=== PATIENT | female | born 1945 | race American Indian/Alaskan Native ===

== ENCOUNTER 2017-05-23 06:01 | Inpatient (IN) | payer MEDICARE ==
--- NOTE | 2017-05-22 11:15 | Anesthesia Consultation ---
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
[2017-05-22 12:16] LABS: Anion Gap 17 mmol/L; BUN/Creatinine Ratio 23; Blood Urea Nitrogen 14 mg/dL (7-17); Calcium 9.5 mg/dL (8.4-10.2); Carbon Dioxide 25 mmol/L (22-30); Chloride 100.3 mmol/L (98-107); Glucose 93 mg/dL (65-100); Potassium 3.7 mmol/L (3.6-5.0); Sodium 139 mmol/L (137-145)
[2017-05-22 12:19] LABS: Basophils % (Auto) 0.6 % (0.0-1.8); Hematocrit 40.8 % (30.3-42.9); Hemoglobin 12.7 gm/dl (10.1-14.3); Mean Corpuscular HGB Conc 31 % (30-34); Mean Corpuscular Volume 72 fl (79-97); Platelet Count 224 K/mm3 (140-440); Red Blood Count 5.64 M/mm3 (3.65-5.03); Red Cell Distribution Width 15.5 % (13.2-15.2); White Blood Count 4.6 K/mm3 (4.5-11.0)
[2017-05-22 12:23] LABS: Mean Corpuscular Hemoglobin 23 pg (28-32)
[~2017-05-23 06:01] MED LIST: ANCEF/STERILE WATER 2 GM/20 ML 2 GM/20 ML SYRINGE IV NR; NACL 0.9% 1000 ML 1,000 ML IV SCH; PEPCID PO NR; VERSED IV NR
[2017-05-23] MEDS ORDERED: NACL BACTERIOSTATIC INFILTRATI ONE (06:28)
[2017-05-23] MEDS ORDERED: XYLOCAINE MPF 2% ONE (07:16)
[2017-05-23] MEDS ORDERED: DECADRON ONE (07:16)
[2017-05-23] MEDS ORDERED: ZEMURON IV ONE (07:16)
[2017-05-23] MEDS ORDERED: ZOFRAN ONE (07:16)
[2017-05-23] MEDS ORDERED: ROBINUL ONE ×2 (07:16)
[2017-05-23] MEDS ORDERED: SUBLIMAZE ONE (07:16)
[2017-05-23] MEDS ORDERED: NEOSTIGMINE ONE (07:16)
--- NOTE | 2017-05-23 07:32 | Anesthesia Day of Surgery ---
Anesthesia Day of Surgery - Day of Surgery Patient Examined: Yes Patient H&P Reviewed: Yes Patient is NPO: Yes
[2017-05-23] MEDS ORDERED: PERCOCET 5/325 PO PRN (07:33)
[2017-05-23] MEDS ORDERED: ZOFRAN IV PRN ×2 (07:33→08:23)
[2017-05-23] MEDS ORDERED: DIPRIVAN 10 MG/ML IV ONE (07:34)
[2017-05-23] MEDS ORDERED: PROTAMINE SULFATE ONE (07:47)
[2017-05-23] MEDS ORDERED: HEPARIN 10,000 UNITS/10 ML ONE (07:48)
[2017-05-23] MEDS ORDERED: THROMBIN (BOVINE) TP ONE (07:48)
[2017-05-23] MEDS ORDERED: NACL 0.9% 500 ML 500 ML ONE (07:48)
[2017-05-23] MEDS ORDERED: NACL 0.9% 0 ML ONE (07:48)
[2017-05-23] MEDS ORDERED: GELFOAM TP ONE (07:48)
[2017-05-23] MEDS ORDERED: MARCAINE 0.5% 30 ML INFILTRATI ONE (07:48)
[2017-05-23] MEDS ORDERED: DILAUDID IV PRN (08:00)
[2017-05-23] MEDS ORDERED: TYLENOL PO PRN (08:23)
[2017-05-23] MEDS ORDERED: MILK OF MAGNESIA PO PRN (08:23)
[2017-05-23] MEDS ORDERED: ARTIFICIAL TEARS OPHTH OINT ONE (08:43)
[2017-05-23] MEDS ORDERED: HEPARIN 10,000 UNITS/10 ML 2,000 UNIT in NACL 0.9% 500 ML 500 ML IR ONE (09:04)
[2017-05-23] MEDS ORDERED: DILAUDID ONE (09:11)
[2017-05-23] MEDS ORDERED: NACL 0.9% IR ONE (09:15)
[2017-05-23] MEDS ORDERED: ePHEDrine SULFATE ONE (09:41)
[2017-05-23] MEDS ORDERED: DULCOLAX PR PRN (10:00)
[2017-05-23] MEDS ORDERED: NACL 0.9% 1000 ML 1,000 ML ONE (10:03)
[2017-05-23] MEDS ORDERED: MARCAINE 0.5% INFILTRATI ONE (10:50)
[2017-05-23] MEDS ORDERED: ATIVAN PO PRN (11:30)
[2017-05-23] MEDS ORDERED: NARCAN 0.4 MG/1 ML IV PRN (11:31)
[2017-05-23] MEDS ORDERED: MORPHINE IV PRN ×2 (11:31)
--- NOTE | 2017-05-23 11:37 | Post Operative Note ---
Pre-op diagnosis: Left popliteal venous aneurysm Post-op diagnosis: same Findings: 3 cm popliteal venous aneurysm with neural compression successfully resected and repaired using a lateral venorrhaphy technique Procedure: Resection and repair of left popliteal artery aneurysm using aneurysmectomy and lateral venorrhaphy Anesthesia: LING Surgeon: MARGIE MEJIA Medical Dosimetrist: BERNARDO HAWLEY Estimated blood loss: 50-100ml Pathology: list (venous aneurysm wall) Specimen disposition: to lab Condition: stable Disposition: PACU
[2017-05-23] MEDS ORDERED: NACL 0.9% 1000 ML 1,000 ML IV SCH (11:45)
--- NOTE | 2017-05-23 11:57 | Operative Report ---
Operative Report Operative Report: Date of procedure: 05/23/2017 Pre-operative diagnosis: Left popliteal venous aneurysm with neural compression Post-operative diagnosis: Same Procedure name(s): Section and repair of left popliteal venous aneurysm using aneurysmectomy and lateral venorraphy technique Surgeon: Joshua Nelson MD Harvest Worker Field Crop: Saman Dale PA-C Anesthesia: Normal endotracheal anesthesia prone positioning EBL: 75 mL Specimen(s): Venous aneurysm wall Findings: 3 cm venous aneurysms successfully resected venous continuity preserved. Short saphenous-popliteal junction preserved Procedure: Patient in the supine position after adequate levels of general endotracheal anesthesia was obtained the patient was then transferred from the bed to the operating room table in the prone position and after appropriate positioning and safety protocols were followed the left leg was then prepped and draped in standard sterile technique exposing the posterior popliteal fossa. A vertical S type incision for a standard posterior approach was then made in the posterior popliteal fossa and carried down sharply through the subcutaneous tissue. Soft tissue was preserving all neural structures. The posterior fascia was then divided vertically and the short saphenous vein tibial nerve were identified and preserved. Inferior portion of the dissection was the popliteus muscle the superior portion of the dissection was the space between the head of the gastrocnemius muscles. The posterior wall of the venous aneurysm was easily observable through the subcutaneous tissue and a careful meticulous dissection was made delineating the normal popliteal vein above and below the aneurysmal expansion. All neurovascular structures were preserved and swept either medially or laterally as indicated by the attending location to the aneurysm. Short saphenous vein and the saphenous popliteal junction was preserved. I then completely mobilized the vessel from underneath side branches. The patient was then heparinized and after an appropriate delay inflow and outflow vessels were occluded. A longitudinal venotomy was then made in the posterior wall of the aneurysm incision was extended proximally until normal vein was encountered. I then resected the redundant vein wall leaving enough to do a primary closure without significant venous narrowing. The anterior wall of the aneurysm was exceedingly thin and I did not feel it was structurally sound therefore I imbricated the thicker portions of the vein excluding the patient portion. 6-0 Prolene suture was used. As a large popliteal valve which was preserved. I then closed the venotomy and running 6-0 Prolene suture 4 needle technique. Inflow and outflow vessels were flushed. Suture line was then completed and air was evacuated followed by sequential release of the blood vessels. I assumed a normal caliber and was to be flowing normally. Hemostasis was obtained using quick clot. Then placed a field block of Marcaine in the fascia subcutaneous tissue and subdermal levels and then closed the fascia using a running 3-0 Vicryl suture. Subcutaneous tissue was then closed using 3-0 Vicryl and the skin was closed using 4-0 Monocryl subcuticular. The skin was sealed with Dermabond. The patient was then returned to the supine position extubated and returned to the recovery room in stable condition having tolerated the procedure well. Sponge and needle counts were correct.
[2017-05-23] MEDS ORDERED: ANCEF/NS 1 GM/50 ML 1 GM/50 ML BAG IV SCH (12:00)
[2017-05-23] MEDS: ceFAZolin 1 GM in NACL 0.9% 20 ML IV SCH ×2 (15:44→22:20)
[2017-05-23] MEDS: NORCO 5/325 PO PRN ×2 (16:04→22:00)
[2017-05-23] MEDS: ELIQUIS PO SCH (22:01)
[2017-05-24] MEDS: NORCO 5/325 PO PRN ×2 (04:22→14:29)
[2017-05-24 05:56] LABS: Hematocrit 33.2 % (30.3-42.9); Hemoglobin 10.7 gm/dl (10.1-14.3)
[2017-05-24 06:13] LABS: Anion Gap 16 mmol/L; BUN/Creatinine Ratio 15; Blood Urea Nitrogen 9 mg/dL (7-17); Calcium 7.9 mg/dL (8.4-10.2); Carbon Dioxide 25 mmol/L (22-30); Chloride 106.7 mmol/L (98-107); Glucose 95 mg/dL (65-100); Potassium 3.6 mmol/L (3.6-5.0); Sodium 144 mmol/L (137-145)
[2017-05-24 08:14] VITALS: BP 104/60
[2017-05-24] MEDS ORDERED: ZESTRIL PO SCH (10:00)
[2017-05-24] MEDS ORDERED: HCTZ PO SCH (10:00)
[2017-05-24] MEDS ORDERED: LOPRESSOR PO SCH (10:00)
[2017-05-24] MEDS: ELIQUIS PO SCH (10:05)
--- NOTE | 2017-05-24 13:28 | Progress Note ---
Assessment and Plan Pt doing well. She feels well, and likely could be d/c later today. She is on eliquis 2.5 mg po bid as an outpt. Will increase to a therapeutic dosage and d/c later today. 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 Denies complaint, other than mild incisional discomfort. OOB and ambulating in the hallway without issue. Objective - Constitutional Vitals: Vital Signs - 12hr 05/24/17 05/24/17 05/24/17 04:27 07:26 10:15 Temperature 98.8 F 98.9 F Pulse Rate 60 73 73 Respiratory 20 18 Rate Blood Pressure 104/60 104/60 Blood Pressure 113/61 [Left] O2 Sat by Pulse 95 Oximetry 05/24/17 10:16 Temperature Pulse Rate 73 Respiratory Rate Blood Pressure 104/60 Blood Pressure [Left] O2 Sat by Pulse Oximetry General appearance: Present: no acute distress - EENT Eyes: EOM intact ENT: hearing intact - Neck Neck: supple - Respiratory Respiratory effort: normal Extremities: pulses intact, normal temperature Extremity abnormal: other (Incision intact without erythema or drainage) - Neurologic Neurologic: no focal deficits - Psychiatric Psychiatric: appropriate mood/affect, intact judgment & insight, cooperative - Labs CBC & Chem 7: 05/24/17 04:17 05/24/17 04:17 Labs: Abnormal lab results 05/24/17 Range/Units 04:17 Creatinine 0.6 L (0.7-1.2) mg/dL Calcium 7.9 L D (8.4-10.2) mg/dL
--- NOTE | 2017-05-24 14:45 | Short Stay Summary ---
Short Stay Documentation Date of service: 05/24/17 - History H&P: obtained from office - Allergies and Medications Current Medications: Allergies acetaminophen [From Percocet] Allergy (Verified 05/16/17 13:53) Dizziness oxycodone [From Percocet] Allergy (Verified 05/16/17 13:53) Dizziness Home Medications Medication Instructions Recorded Confirmed Last Taken Type Apixaban [Eliquis] 2.5 mg PO BID 05/16/17 05/16/17 05/23/17 04:00 History Hydrochlorothiazide [HCTZ] 25 mg PO QDAY 05/16/17 05/23/17 05/22/17 History LORazepam [Ativan] 0.5 mg PO Q6H PRN 05/16/17 05/23/17 3 Days Ago History ~05/20/17 Lisinopril [Zestril] 10 mg PO DAILY 05/16/17 05/16/17 05/23/17 04:00 History Metoprolol [Lopressor] 25 mg PO DAILY 05/16/17 05/16/17 05/23/17 04:00 History HYDROcodone/APAP 5-325 [[place] 1 each PO Q6HR PRN #14 tablet 05/24/17 Unknown Rx 5/325 mg] Active Medications Acetaminophen (Tylenol) 650 mg PO Q4H PRN PRN Reason: Pain MILD(1-3)/Fever >100.5/ARECHIGA Acetaminophen/Hydrocodone Bitart ([place] 5/325) 2 each PO Q6H PRN PRN Reason: Pain, Moderate (4-6) Last Admin: 05/24/17 14:29 Dose: 2 each Apixaban (Eliquis) 2.5 mg PO BID [facility] PRN Reason: Protocol Last Admin: 05/24/17 10:05 Dose: 2.5 mg Bisacodyl (Dulcolax) 10 mg MN QDAY PRN PRN Reason: Constipation unrelieved by MOM Hydrochlorothiazide (Hctz) 25 mg PO QDAY [facility] Last Admin: 05/24/17 10:15 Dose: Not Given Lisinopril (Zestril) 10 mg PO DAILY [facility] Last Admin: 05/24/17 10:16 Dose: Not Given Lorazepam (Ativan) 0.5 mg PO Q6H PRN PRN Reason: Anxiety Magnesium Hydroxide (Milk Of Magnesia) 30 ml PO Q4H PRN PRN Reason: Constipation Metoprolol Tartrate (Lopressor) 25 mg PO DAILY [facility] Last Admin: 05/24/17 10:15 Dose: Not Given Morphine Sulfate (Morphine) 2 mg IV Q4H PRN PRN Reason: Pain, Moderate (4-6) Morphine Sulfate (Morphine) 4 mg IV Q4H PRN PRN Reason: Pain , Severe (7-10) Naloxone HCl (Narcan 0.4 Mg/1 Ml) 0.1 mg IV Q2MIN PRN PRN Reason: Res Rate </= 8 or 02 SAT < 92% Ondansetron HCl (Zofran) 4 mg IV Q8H PRN PRN Reason: Nausea And Vomiting - Physical exam Extremities: pulses intact, normal temperature - Brief post op/procedure progress note Procedure: Operative Report Operative Report: Date of procedure: 05/23/2017 Pre-operative diagnosis: Left popliteal venous aneurysm with neural compression Post-operative diagnosis: Same Procedure name(s): Section and repair of left popliteal venous aneurysm using aneurysmectomy and lateral venorraphy technique Surgeon: Joshua Nelson MD Pace Analyst: Saman Dale PA-C Anesthesia: Normal endotracheal anesthesia prone positioning EBL: 75 mL Specimen(s): Venous aneurysm wall Findings: 3 cm venous aneurysms successfully resected venous continuity preserved. Short saphenous-popliteal junction preserved - Disposition Condition at discharge: Good Disposition: DC-01 TO HOME OR SELFCARE - Discharge Diagnoses (1) Chronic aneurysm of left popliteal vein Status: Acute Short Stay Discharge Plan Activity: advance as tolerated Weight Bearing Status: Weight Bear as Tolerated Diet: regular Follow up with: JOSHUA NELSON MD [Staff Physician] - 14 Days Prescriptions: Apixaban [Eliquis] 5 mg PO Q12HR #60 tablet HYDROcodone/APAP 5-325 [[place] 5/325 mg] 1 each PO Q6HR PRN #14 tablet PRN Reason: Pain
== END 2017-05-24 16:30 | disposition home or self-care (01) | DRG 254 ==
LOC: 3A 06:01 → EDSTATUS 08:00 → 3B-SURG 12:33
PROVIDERS: ADMIT Surgery Vascular Surgery; ATTEND Surgery Vascular Surgery
PROC: 06BY0ZZ Excision of Lower Vein, Open Approach (ICD-10-PCS; principal; 2017-05-23)
PROC: 04Q Lower Arteries, Repair (ICD-10-PCS; 2017-05-23)
DX: I86.8 Varicose veins of other specified sites (principal); I10 Essential (primary) hypertension; I25.2 Old myocardial infarction; Z79.899 Other long term (current) drug therapy; Z88.8 Allergy status to other drugs, medicaments and biological substances; I73.9 Peripheral vascular disease, unspecified
CPT/HCPCS: 36415; 80048; 85014; 85018; 85025; 86850; 86900; 86901; 88304; 88311; 94760; A4649; J0690; J1100; J1170; J1644; J2250; J2405; J2704; J2710; J2720; J3010; J7030; J7040